=== PATIENT | male | born 1990 | race Caucasian/White ===

== ENCOUNTER 2019-05-14 | Emergency (ER) | payer BC ==
[~2019-05-14] MED LIST: AUGMENTIN500TAB PO; DENIES CURRENT MEDS
== END 2019-05-14 11:45 | disposition home or self-care (01) | DRG 700 ==
DX: Z46.6 Encounter for fitting and adjustment of urinary device (principal)

== ENCOUNTER 2020-08-04 12:06 | Emergency (ER) | payer BC ==
[~2020-08-04] VITALS: Ht 172.7 cm; Wt 78.0 kg
[2020-08-04 12:39] VITALS: BP 120/78
[2020-08-04] MEDS ORDERED: LAMISIL AT1 % EX (13:06)
== END 2020-08-04 13:18 | disposition home or self-care (01) | DRG 607 ==
LOC: ED 12:06
DX: B35.6 Tinea cruris (principal)